=== PATIENT | female | born 1960 | race Caucasian/White ===

== ENCOUNTER → 2021-12-10 | Outpatient (CLI) | payer BC | LOC: M PLARAD 14:14 | PROVIDERS: ATTEND Physician Assistant | DX: R91.1 Solitary pulmonary nodule (principal) | CPT/HCPCS: 78815; A9552 ==

== ENCOUNTER → 2022-01-30 | Outpatient (CLI) | payer BC ==
[~2022-01-30] MED LIST: ACET32TAB PO; ACETAMINOPHEN TAB 650MG DOSE (2X325MG) PO PRN; ATOR1TAB21 PO; HOME MED LIST COMPLETE! XX SCH; LIDOCAINE 1% MDV 20ML VIAL As Ordered ONE; LOSA50TA28 PO; MONT5CHW9 PO
[2022-01-30 11:00] VITALS: BP 133/62
== END ==
LOC: M IRPRO 07:59
PROVIDERS: ATTEND Internal Medicine Pulmonary Disease
DX: R91.8 Other nonspecific abnormal finding of lung field (principal); J95.811 Postprocedural pneumothorax